=== PATIENT | female | born 1975 | race Caucasian/White ===

== ENCOUNTER 2024-06-16 07:42 | Outpatient (CLI) | payer OTHER, SELFPAY ==
--- NOTE | 2024-06-16 06:00 | DI.RAD_ITS ---
Exam(s) XR PAIN CLINIC SACRIOILIAC 2V EXAM: XR PAIN CLINIC SACRIOILIAC 2V CLINICAL HISTORY: DX: Sacroiliac Joint Dysfunction. TECHNIQUE: Fluoroscopy was provided for the referring physician for guidance with performing pain cl inic injection procedure. COMPARISON: No exams were available for comparison FINDINGS: Please see procedure note for details. Fluoro time: 31.6 seconds RADIATION DOSE DELIVERED: Ka,r=9.56 mGy
[2024-06-16 07:58] VITALS: BP 130/95; PULSE 92; RESP 18; TEMP 37.1; O2SAT 96
[2024-06-16 08:18] VITALS: PULSE 89; O2SAT 94
[2024-06-16 08:20] VITALS: BP 140/97; PULSE 87; RESP 16; O2SAT 98
[2024-06-16 08:21] VITALS: PULSE 91; RESP 20; O2SAT 97
[2024-06-16 08:30] VITALS: PULSE 91; RESP 18; O2SAT 97
[2024-06-16 08:31] VITALS: BP 139/96; PULSE 89
--- NOTE | 2024-06-16 08:32 | PDOC.PAIN ---
Date of service: 06/16/24 Time of Service: 08:32 Pain Managment Procedure Note Procedure Note Procedure Note: PROCEDURE NOTE BILATERAL INTRA-ARTICULAR SACROILIAC JOINT INJECTION Date of Service: June 16, 2024 Patient: Lisa Black Provider: Gavin Ledezma DO, MPH COMMENTS: I previously evaluated the patient in the office and their symptoms in relation to the sacroiliac joint pain have remained the same. Pre-operative diagnosis: Sacroiliac joint dysfunction Post-operative diagnosis: Same Pre-procedure pain: VAS= 6/10 Lisa Black has been referred to our [facility] for a Bilateral intra-articular Sacroiliac joint injection. Lisa was interviewed and the medical record reviewed. There were no medical, pharmacologic, radiographic or other structural contraindications to attempting a fluoroscopically-guided, contrast-enhanced, intra-articular Sacroiliac joint injection. The risks, benefits, and potential side effects of this procedure were reviewed with the patient. Questions and concerns were addressed. After it was clear that Lisa was fully informed about the procedure, the printed consent form was signed by the patient and myself. Lisa was placed in the prone position on the fluoroscopy table and an automated blood pressure cuff, 3 lead EKG, and pulse oximeter were applied. The skin entry point for approaching the Left sacroiliac joint was identified under the most advantageous fluoroscopic view and marked. Following thorough Chlorhexadine preparation of the skin and draping with sterile surgical drapes, 2 mls of 1% lidocaine was infiltrated into the skin at the entry point and the surrounding subcutaneous tissues. Next, a 3.5 22G spinal needle was placed under fluoroscopic guidance into the Right sacroiliac joint. Intra-articular placement was confirmed by a clear arthrogram resulting from the injection of 0.25ml of Omnipaque-240. Next, 1 ml of Depo- Medrol 40 mg/ml was injected intra-articularly with an initial reproduction of a significant component of the usual pain. This was followed with 1 ml of 1% Lidocaine. The needle was then removed without difficulty. (49 ml of Omnipaque-240 was wasted). The exact procedure was completed on the opposite sacroiliac joint. Lisa's vital signs were stable throughout the procedure and were as recorded in nursing records. Follow up plans and appointments were discussed with Lisa. Post procedure instructions were given as documented in nursing records. Having met discharge criteria, Lisa was [facility] from the [facility] COMMENTS: Post-procedure pain: VAS= 0/10. If the patient receives at least 50% improvement in pain and/or function for at least 3 months, this procedure can be repeated if needed. I personally performed this entire procedure. GAVIN LEDEZMA DO, MPH ABPMR-subspecialty board certification in Pain Medicine [facility]
[2024-06-16] MEDS: Omnipaque 240 MG/ML 50 ML BTL IJ (08:36)
[2024-06-16] MEDS: Nerve Block Tray 1 EACH MC (08:36)
[2024-06-16] MEDS: methylPREDNISolone ACETATE 80 MG/ML VIAL IJ (08:36)
== END 2024-06-16 07:43 | disposition home or self-care (01) ==
LOC: PC 07:42
PROVIDERS: PCP Physician Assistant Medical; Visit Provider Preventive Medicine Occupational Medicine
DX: M53.3 Sacrococcygeal disorders, not elsewhere classified (principal)
CPT/HCPCS: 27096; 72200; J1010; Q9967